=== PATIENT | male | born 1990 | race Caucasian/White ===

== ENCOUNTER 2024-12-01 07:12 | Emergency (ER) | payer OTHER ==
[~2024-12-01] VITALS: Ht 175.3 cm; Wt 70.0 kg
[2024-12-01] MEDS ORDERED: OLANZapine 10 MG TABDIS PO ONE (07:30)
[2024-12-01] MEDS ORDERED: IBUPROFEN 600 MG TAB PO ONE (08:15)
[2024-12-01 08:16] VITALS: BP 00/00
== END 2024-12-01 08:16 | disposition home or self-care (01) ==
LOC: ED 07:12
DX: F15.959 Other stimulant use, unspecified with stimulant-induced psychotic disorder, unspecified (principal); Z59.00 Homelessness unspecified
CPT/HCPCS: 99283; A9270